=== PATIENT | female | born 1990 | race African-American/Black ===

== ENCOUNTER 2016-06-20 02:11 | Emergency (ER) | payer OTHER, MEDICAID ==
[~2016-06-20] VITALS: Ht 162.6 cm; Wt 65.8 kg
[~2016-06-20 02:11] MED LIST: METR500T14 PO
[2016-06-20 02:27] VITALS: BP 136/85
== END 2016-06-20 04:00 | disposition home or self-care (01) ==
LOC: ER 02:12
DX: J20.9 Acute bronchitis, unspecified (principal); J45.909 Unspecified asthma, uncomplicated; J02.9 Acute pharyngitis, unspecified

== ENCOUNTER 2016-06-20 11:29 | Emergency (ER) | payer OTHER, MEDICAID ==
[~2016-06-20] VITALS: Ht 162.6 cm; Wt 65.8 kg
[2016-06-20 12:14] VITALS: BP 119/75
== END 2016-06-20 12:24 | disposition home or self-care (01) ==
LOC: ER 11:29
DX: J20.9 Acute bronchitis, unspecified (principal); J45.909 Unspecified asthma, uncomplicated

== ENCOUNTER 2017-03-01 09:38 | Emergency (ER) | payer OTHER, MEDICAID ==
[~2017-03-01] VITALS: Ht 162.6 cm; Wt 65.3 kg
[2017-03-01 09:44] VITALS: BP 157/70
== END 2017-03-01 10:42 | disposition home or self-care (01) ==
LOC: ER 09:38
DX: J20.9 Acute bronchitis, unspecified (principal); J45.909 Unspecified asthma, uncomplicated
CPT/HCPCS: 71046

== ENCOUNTER 2017-03-15 09:08 | Emergency (ER) | payer OTHER, MEDICAID ==
[~2017-03-15] VITALS: Ht 162.6 cm; Wt 65.3 kg
[2017-03-15 10:57] VITALS: BP 131/84
== END 2017-03-15 11:46 | disposition home or self-care (01) ==
LOC: ER 09:08
DX: J20.9 Acute bronchitis, unspecified (principal); J45.909 Unspecified asthma, uncomplicated

== ENCOUNTER 2017-11-08 01:49 | Emergency (ER) | payer MEDICAID, OTHER ==
[~2017-11-08] VITALS: Ht 162.6 cm; Wt 63.5 kg
[2017-11-08 02:53] LABS: Basophils # (auto) 0 uL; Basophils % (auto) 0.2 % (0.0-2.0); Eosinophils # (auto) 0.2 uL; Eosinophils % (auto) 2.3 % (0.0-7.0); Hematocrit 40.3 % (36.0-46.0); Hemoglobin 13.1 g/dL (12.2-16.2); Lymphocytes % (auto) 24.4 % (10.0-50.0); Mean Corpuscular Hemoglobin 27.3 pg (28.0-32.0); Mean Corpuscular Hgb Conc. 32.5 g/dL (32.0-36.0); Mean Corpuscular Volume 83.8 fL (80.0-100.0); Monocytes # (auto) 0.6 uL; Neutrophils # (auto) 5.4 uL; Neutrophils % (auto) 66.1 % (37.0-80.0); Nucleated Red Blood Cells % 0.1 %; Platelet Count (auto) 325 10^3/uL (140-450); Red Cell Distribution Width 13.3 % (11.8-14.3); White Blood Cell 8.1 10^3/uL (4.4-10.8)
[2017-11-08 03:05] LABS: Urine Bacteria NONE SEEN /hpf (None Seen); Urine Blood Negative /uL (Negative); Urine Mucus FEW (None Seen); Urine WBC 1 /hpf (0 - 5)
[2017-11-08 03:10] LABS: BUN/Creatinine Ratio 13.6; Calcium 8.5 mg/dL (8.5-10.1)
[2017-11-08 03:12] LABS: Bilirubin, Total 0.3 mg/dL (0.2-1.0); Total Protein 7.7 g/dL (6.4-8.2)
[2017-11-08] MEDS ORDERED: predniSONE 20 MG TAB PO ONE (04:45)
[2017-11-08] MEDS ORDERED: ALBUTEROL SULF 2.5 MG/0.5ML(0.5%) NEB SOLN HHN ONE (04:45)
[2017-11-08] MEDS ORDERED: IPRATROPIUM BROM 0.5 MG/2.5ML INH SOL HHN ONE (04:45)
[2017-11-08 06:01] VITALS: BP 107/68
== END 2017-11-08 06:02 | disposition home or self-care (01) ==
LOC: ER 01:50
DX: J45.909 Unspecified asthma, uncomplicated (principal); F17.210 Nicotine dependence, cigarettes, uncomplicated
CPT/HCPCS: 36415; 71046; 80053; 81001; 85025; 94640; 99285; J7512; J7611; J7644

== ENCOUNTER 2018-12-16 17:11 | Emergency (ER) | payer MEDICAID, OTHER ==
[~2018-12-16] VITALS: Ht 162.6 cm; Wt 56.7 kg
[2018-12-16 18:32] VITALS: BP 115/63
[2018-12-16] MEDS ORDERED: ALBUTEROL SULF 2.5 MG/0.5ML(0.5%) NEB SOLN NEB ONE (19:15)
[2018-12-16] MEDS ORDERED: IPRATROPIUM BROM 0.5 MG/2.5ML INH SOL NEB ONE (19:15)
== END 2018-12-16 19:44 | disposition home or self-care (01) ==
LOC: ER 17:11
DX: J20.9 Acute bronchitis, unspecified (principal); J06.9 Acute upper respiratory infection, unspecified; F17.210 Nicotine dependence, cigarettes, uncomplicated
CPT/HCPCS: 94640; 99283; J7611; J7644